=== PATIENT | female | born 1960 | race Caucasian/White ===

== ENCOUNTER 2016-07-16 07:04 | Emergency (ER) | payer OTHER ==
[2016-07-16] MEDS ORDERED: Aspirin Low Dose CHEW TAB* 81 MG PO ONE (07:19)
[2016-07-16 07:38] VITALS: BP 146/79
--- NOTE | 2016-08-17 08:17 | UC ---
Too Elliott Benjamin, scribed for Akanksha Joseph DO on 07/16/16 at 0729 . Cardiac HPI - HPI Summary HPI Summary: 55yo female comes to after waking up this morning around 0530 with sharp diffuse CP in 8/10 scale. Pt also reported having some SOB. 30 minutes later, pt started to feel nauseous as well. Pain radiates to shoulders and jaw. Sharp pain now turned into chest pressure and tightness of 1/10. Pt reports exercising lightly last night, but that is usual for her. Pt denies abdominal pain, diaphoresis, cough, MCGRATH, rash, or dizziness. Hx of depression, anxiety, and Crohns dz. Fhx of CAD after 53, HTN, and Crohns. - History of Current Complaint Stated Complaint: CHEST PAIN Time Seen by Provider: 07/16/16 07:05 Hx Obtained From: Patient Onset/Duration: Sudden Onset, Lasting Minutes, Still Present Timing: Constant Initial Severity: Moderate Current Severity: Mild Chest Pain Location: Diffuse Character: Tightness - now, Pressure/Squeezing - now, Sharp/Stabbing - initially Aggravating: Nothing Alleviating: Nothing Associated Signs & Symptoms: Positive: Chest Pain, Anxiety, SOB, Nausea/ Vomiting - Nausea. Negative: Headaches, Dizziness, Diaphoresis, Cough - Allergy/Home Medications Allergies/Adverse Reactions: Allergies Allergy/AdvReac Type Severity Reaction Status Date / Time kiwi Allergy Anaphylatic Uncoded 07/16/16 07:23 Shock Home Medications: Home Medications Cholecalciferol [Vitamin D3] 1 tab PO DAILY 07/16/16 [History Confirmed 07/16/16 ] DULoxetine CAP* [Cymbalta CAP*] 60 mg PO BID 07/16/16 [History Confirmed 09/24] Mercaptopurine 50 mg PO DAILY 07/16/16 [History Confirmed 07/16/16] Multiple Vitamin [Multivitamins] 1 cap PO DAILY 07/16/16 [History Confirmed 09/24] Kellogg-3 Fatty Acids [Fish Oil] 1 cap PO DAILY 07/16/16 [History Confirmed ] buPROPion TAB* [Wellbutrin TAB*] 300 mg PO DAILY 07/16/16 [History Confirmed 09/24] clonazePAM TAB(*) [Klonopin TAB(*)] PO BID 07/16/16 [History] lamoTRIgine TAB(*) [Lamictal TAB(*)] 300 mg PO DAILY 07/16/16 [History Confirmed 07/16/16] PMH/Surg Hx/FS Hx/Imm Hx GI/ History: Other - Crohns Other GI/ History: Crohns Psychological History: Anxiety, Depression - Surgical History Surgical History: Yes Surgery Procedure, Year, and Place: INTESTINAL RESECTION - Family History Known Family History: Positive: Cardiac Disease, Hypertension - Social History Lives: With Family Alcohol Use: Rare Smoking Status (MU): Former Smoker - over 30 yrs ago Review of Systems Constitutional: Negative Skin: Negative Eyes: Negative ENT: Negative Respiratory: Shortness Of Breath Cardiovascular: Chest Pain Gastrointestinal: Nausea Genitourinary: Negative Motor: Negative Neurovascular: Negative Musculoskeletal: Myalgia, Other: Neurological: Negative Psychological: Negative All Other Systems Reviewed And Are Negative: Yes Physical Exam Triage Information Reviewed: Yes Appearance: Well-Appearing, Well-Nourished, Pain Distress - mild, Other: - tearful; Vital Signs: Initial Vital Signs Temp 98.0 F 07/16/16 07:27 Pulse 89 07/16/16 07:27 Resp 16 07/16/16 07:27 BP 146/79 07/16/16 07:27 Pulse Ox 98 07/16/16 07:27 Vital Signs Reviewed: Yes Eyes: Positive: Conjunctiva Clear. Negative: Discharge ENT: Positive: Normal ENT inspection. Negative: Muffled/hoarse voice Neck exam: Normal Neck: Positive: Supple Respiratory: Positive: Lungs clear, Normal breath sounds, No respiratory distress, No accessory muscle use Cardiovascular: Positive: RRR, No Murmur Abdomen Description: Positive: Nontender, Soft. Negative: Distended, Guarding Bowel Sounds: Positive: Present Musculoskeletal Exam: Normal Neurological: Positive: Alert, Muscle Tone Normal Skin Exam: Normal, Other - warm dry, normal color - Assessment/Plan Course Of Treatment: EKG taken at 0711: Sinus rhythm HR of [address] changes. Triage BP: 146/79. - Clinical Impression Provider Diagnoses: cp r/o acs - Physician Notifications Discussed Patient Care With: Dr. Carter (Emergency Medicine) at 0711. Discharge - Discharge Plan Condition: Stable Disposition: [facility] Referrals: Barbara Wan MD [Primary Care Provider] - The documentation as recorded by the Too garrett Benjamin accurately reflects the service I personally performed and the decisions made by me, Akanksha Joseph DO.
== END 2016-07-16 08:00 | disposition short-term general hospital (02) ==
LOC: UCEAST 07:04
DX: R07.89 Other chest pain (principal); R06.02 Shortness of breath; R11.2 Nausea with vomiting, unspecified; F41.9 Anxiety disorder, unspecified; Z87.891 Personal history of nicotine dependence
CPT/HCPCS: 93005; 99213; G0463

== ENCOUNTER 2016-07-16 08:22 | Emergency (ER) | payer OTHER ==
[~2016-07-16 08:22] MED LIST: Aspirin Low Dose CHEW TAB* 81 MG ONE
[2016-07-16 08:58] LABS: Hematocrit 38 % (35-47); Hemoglobin 12.6 g/dl (12.0-16.0); Mean Corpuscular HGB Conc 33 g/dl (31-36); Mean Corpuscular Hemoglobin 30 pg (27-31); Mean Corpuscular Volume 89 fL (80-97); Mean Platelet Volume 7 um3 (7.4-10.4); Red Blood Count 4.26 10^6/ul (4.0-5.4); Red Cell Distribution Width 13 % (10.5-15)
--- NOTE | 2016-07-16 09:04 | ED ---
HPI Chest Pain - HPI Summary HPI Summary: Patient presents with chest tightness and back pain that began 05. She denies previous episodes, SOB, lightheadedness, sweating or abdominal pain. She is nauseous. Her pain is not made better or worse with activity. She did not eat a spicy or fatty meal last night. He father has CAD. She does not smoke. She has severe anxiety that is treated with therapy and medication, and she denies a recent increase in stress. 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 - History of Current Complaint Chief Complaint: EDChestPainROMI Time Seen by Provider: 07/16/16 08:38 Hx Obtained From: Patient Onset/Duration: Started Hours Ago Time of Onset: 05:30 Timing: Constant Initial Severity: Moderate Current Severity: Mild Pain Intensity: 2 Chest Pain Location: Upper Sternal Chest Pain Radiates: Yes Chest Pain Radiates To:: Back Character: Tightness Aggravating Factor(s): Nothing Alleviating Factor(s): Nothing Associated Signs and Symptoms: Positive: Chest Pain, Anxiety, Nausea - Risk Factors Pulmonary Embolism Risk Factors: Negative - Allergy/Home Medications Allergies/Adverse Reactions: Allergies Allergy/AdvReac Type Severity Reaction Status Date / Time kiwi Allergy Anaphylatic Uncoded 07/16/16 07:23 Shock PMH/Surg Hx/FS Hx/Imm Hx Psychiatric History: Reports: Hx Anxiety - Cancer History Hx Chemotherapy: No Hx Radiation Therapy: No - Surgical History Surgery Procedure, Year, and Place: INTESTINAL RESECTION. BREAST CYST BIOPSY. APPY Infectious Disease History: No Infectious Disease History: Reports: Hx Shingles Denies: Traveled Outside the [place] in Last 30 Days - Family History Known Family History: Positive: Cardiac Disease - father CAD - Social History Occupation: Employed Part-time Lives: Alone Alcohol Use: Occasionally Substance Use Type: Reports: None Smoking Status (MU): Former Smoker Review of Systems Negative: Fever, Chills Positive: Chest Pain Positive: Nausea. Negative: Abdominal Pain, Vomiting, Diarrhea Negative: Edema Negative: Headache Positive: Anxious All Other Systems Reviewed And Are Negative: Yes Physical Exam Triage Information Reviewed: Yes Vital Signs On Initial Exam: Initial Vitals Temp Pulse Resp BP Pulse Ox 98.2 F 79 16 128/82 97 07/16/16 08:26 07/16/16 08:26 07/16/16 08:26 07/16/16 08:26 07/16/16 08:26 Vital Signs Reviewed: Yes Appearance: Positive: Well-Appearing, No Pain Distress, Well-Nourished Skin: Positive: Warm, Skin Color Reflects Adequate Perfusion, Dry, Soft. Negative: Diaphoretic Head/Face: Positive: Normal Head/Face Inspection Eyes: Positive: EOMI, SERAFIN, Conjunctiva Clear ENT: Positive: Hearing grossly normal Neck: Positive: Supple, Nontender, No Lymphadenopathy Respiratory/Lung Sounds: Positive: Clear to Auscultation, Breath Sounds Present Cardiovascular: Positive: RRR, Pulses are Symmetrical in both Upper and Lower Extremities Abdomen Description: Positive: Nontender, Soft. Negative: CVA Tenderness (R), CVA Tenderness (L), Distended, Guarding Bowel Sounds: Positive: Present Musculoskeletal: Positive: Strength/ROM Intact. Negative: Edema Left, Edema Right Neurological: Positive: Sensory/Motor Intact, Alert, Oriented to Person Place, Time, NV Bundle Intact Distally Psychiatric: Positive: Anxious - patient is intermittently weeping during interview. She has therapist and takes daily medication for anxiety. AVPU Assessment: Alert - Manda Coma Scale Coma Scale Total: 15 Diagnostics - Vital Signs Vital Signs Temp Pulse Resp BP Pulse Ox 07/16/16 08:29 97.3 F 79 16 127/76 97 07/16/16 08:26 98.2 F 79 16 128/82 97 - Laboratory Result Diagrams: 07/16/16 07:30 07/16/16 07:30 Lab Statement: Any lab studies that have been ordered have been reviewed, and results considered in the medical decision making process. - Radiology No standard instances Xray Interpretation: No Acute Changes Radiology Interpretation Completed By: Radiologist - EKG No standard instances Cardiac Rate: NL EKG Rhythm: Sinus Rhythm ST Segment: Normal Ectopy: None Chest Pain Course/Dx - Chest Pain Differential Diagnosis/HQI/PQRI: Acute RI, ACS, Angina, CHF, Chest Wall - Diagnoses Provider Diagnoses: Chest tightness - Provider Notifications Discussed Care Of Patient With: Dr. Shoemaker, ED attending Time Discussed With Above Provider: 09:50 Discharge - Discharge Plan Condition: Stable Disposition: HOME Patient Education Materials: Chest Wall Pain (ED) Referrals: Barbara Wan MD [Primary Care Provider] - Additional Instructions: Please call your PCP for an appointment in 1-3 days for evaluation. Return to the emergency department if symptoms worsen.
[2016-07-16 09:09] LABS: Albumin 4.1 g/dL (3.2-5.2); Calcium 9.3 mg/dL (8.6-10.3); EGFR African American 69.5 (>60); Globulin 2.8 g/dL (2-4); Potassium 3.8 mmol/L (3.5-5.0); Total Bilirubin 0.3 mg/dL (0.2-1.0); Total Protein 6.9 g/dL (6.4-8.9)
--- NOTE | 2016-07-16 09:09 | RAD ---
Indication: Chest tightness since 5:30 AM. Comparison: No relevant prior exams available on the [facility] for comparison. Technique: Upright AP 0852 hours Report: Clear lungs and pleural spaces. Negative for pneumothorax. The heart, pulmonary vasculature, and mediastinal contours are unremarkable. Probable calcific tendinopathy at the LEFT rotator cuff. IMPRESSION: No evidence for acute intrathoracic disease.
[2016-07-16 12:29] VITALS: BP 130/85
== END 2016-07-16 12:29 | disposition home or self-care (01) ==
LOC: ED 08:22
DX: R07.9 Chest pain, unspecified (principal); R11.0 Nausea; Z87.891 Personal history of nicotine dependence; M54.9 Dorsalgia, unspecified; F41.9 Anxiety disorder, unspecified
CPT/HCPCS: 36415; 71010; 80053; 83605; 83735; 84484; 85025; 85379; 93005; 99283; A9270-GY

== ENCOUNTER 2017-10-29 16:54 | Emergency (ER) | payer OTHER ==
[2017-10-29 17:05] VITALS: BP 129/77
--- NOTE | 2017-10-29 17:20 | UC ---
Cardiac HPI - HPI Summary HPI Summary: This patient is a 56 year old F presenting to [facility] with a chief complaint of CP since earlier today. The patient was sitting at her computer at work during onset. The CC is described as intermittent tight, radiating to her L jaw, and lasting about 15 minutes. The initial pain resolved then came back again but not as bad as the first time. The patient rates the pain 2/10 in severity. Symptoms aggravated by nothing. Symptoms alleviated by spontaneous. Patient reports nausea. Patient denies diaphoresis, SOB, and near syncope. She has had a previous episode of CP and was seen on 07/16/16. FHx of quadruple bypass in father (age in mid 70s). - History of Current Complaint Chief Complaint: UCChestPain Stated Complaint: CHEST PAIN Time Seen by Provider: 10/29/17 16:56 Hx Obtained From: Patient Onset/Duration: Sudden Onset Initial Severity: Mild Current Severity: Mild Pain Intensity: 2 Character: Tightness Aggravating Factor(s): Nothing Alleviating Factor(s): Spontaneous Resolution Associated Signs & Symptoms: Positive: Chest Pain - Patient reports nausea. Patient denies diaphoresis, SOB, and near syncope. - Allergy/Home Medications Allergies/Adverse Reactions: Allergies Allergy/AdvReac Type Severity Reaction Status Date / Time kiwi Allergy Anaphylatic Uncoded 04/19/17 16:20 Shock PMH/Surg Hx/FS Hx/Imm Hx Endocrine History: Other Other Endocrine History: No DM Cardiovascular History: Other Other Cardiovascular History: previous episode of CP; no CAD, HTN - Surgical History Surgical History: Yes Surgery Procedure, Year, and Place: INTESTINAL RESECTION. BREAST CYST BIOPSY. APPENDECTOMY - Family History Known Family History: Positive: Cardiac Disease - father CAD (quadruple bypass) - Social History Alcohol Use: Rare Substance Use Type: None Smoking Status (MU): Former Smoker Have You Smoked in the Last Year: No When Did the Patient Quit Smoking/Using Tobacco: 18 YEARS OLD Review of Systems Constitutional: Other - denies diaphoresis Respiratory: Other - denies SOB Cardiovascular: Chest Pain - radiating to her L jaw Neurological: Other - denies near-syncope All Other Systems Reviewed And Are Negative: Yes Physical Exam - Summary Physical Exam Summary: VITAL SIGNS: Reviewed. GENERAL: Patient is a well-developed and nourished FEMALE who is lying comfortable in the stretcher. Patient is not in any acute respiratory distress. HEAD AND FACE: Normocephalic EYES: PERRLA, EOMI x 2. EARS: Hearing grossly intact. MOUTH: Oropharynx within normal limits. NECK: Supple, trachea is midline, no adenopathy, no JVD, no carotid bruit. CHEST: Symmetric, no tenderness at palpation LUNGS: Clear to auscultation bilaterally. No wheezing or crackles. CVS: Regular rate and rhythm, S1 and S2 present, no murmurs or gallops appreciated. ABDOMEN: Soft, non-tender. Bowel sounds are normal. No abdominal abnormal pulsations. EXTREMITIES: Full ROM in all major joints, no edema, no cyanosis or clubbing. NEURO: Alert and oriented x 3. No acute neurological deficits. Speech is normal and follows commands. SKIN: Dry and warm Triage Information Reviewed: Yes Vital Signs: Initial Vital Signs Temp 97.5 F 10/29/17 17:01 Pulse 82 10/29/17 17:01 Resp 20 10/29/17 17:01 BP 129/77 10/29/17 17:01 Pulse Ox 97 10/29/17 17:01 Vital Signs Reviewed: Yes Diagnostics - EKG EKG Comments: done at 1654, no ST elevations, inverted T wave in III Cardiac Rate: NL - 76 BPM Cardiac Rhythm: Sinus: Normal - Assessment/Plan Course Of Treatment: This patient is a 48-year-old female who presents to the urgent care with chief complaint of retrosternal chest pressure with radiation to the left side of the jaw. Patient's pain lasted for approximately 15 minutes each time. The pain is not related to exertion. EKG shows a normal sinus rhythm with no ST elevations. Because of the presentation I think the patient would benefit of blood testings and rule out acute coronary syndrome. The patient will be discharged to the emergency department for further workup and management. The patient declined aspirin and declined ambulance transfer. Patient is hemodynamically stable alert and oriented 3 - Differential Diagnoses - Chest Pain Differential Diagnosis/HQI/PQRI: Angina, Chest Wall, GI Disease, Lower Respiratory Infection - Clinical Impression Provider Diagnoses: chest pain Discharge - Sign-Out/Discharge Documenting (check all that apply): Patient Departure - discharged All imaging exams completed and their final reports reviewed: Yes - Discharge Plan Condition: Stable Disposition: HOME Patient Education Materials: Chest Pain (ED) Referrals: Barbara Wan MD [Primary Care Provider] - Additional Instructions: She was discharged to the emergency department. Patient declined ambulance transfer. - Billing Disposition and Condition Condition: STABLE Disposition: Home - Attestation Statements Document Initiated by Tee: Yes Documenting Scribe: Connor Hernandez Provider For Whom Tee is Documenting (Include Credential): Mason Shoemaker MD Scribe Attestation: Connor Elliott, scribed for Mason Shoemaker MD on 10/29/17 at 1726. Scribe Documentation Reviewed: Yes Provider Attestation: The documentation as recorded by the Connor garrett accurately reflects the service I personally performed and the decisions made by me, Mason Shoemaker MD
--- OUTSIDE RECORDS SUMMARY | 2017-10-29 17:25 | XMS REPORT ---
:1960 External Reference #:[id number] Author Organization [facility] Address [address] [place] [address] [place] [address] Phone [phone] Care Team Providers Name Role Phone Barbara Wan MD Primary Care Physician Unavailable Payers Type Date Identification Numbers Payment Provider Subscriber Commercial Effective: Policy Number: [id number] [employer] Elena Myers 2011 PayID: [id number] [address] [place] [address] Medigap Part B Expires: 2011 Policy Number: Healthdilma Myers [id number] Group Number: [id number] [address] PayID: [id number] [place] [address] Advance Directives Type Date Description Status Comment Other Directive 03/11/2015 Health Care Proxy Current and Verified Problems Date Description Provider Status Onset: 06/04/2010 Crohn's disease Rula Moreno M.D., FACP Active Family History Date Family Member(s) Problem(s) Comments Father CABG hip replacement, no Fx Father Atrial Fibrillation Mother Back surgery herniated disc Mother 87 Mother Atrial Fibrillation First Sister Fibromyalgia First Sister 61 First Sister Crohn's Disease Social History Type Date Description Comments Marital Status Single Lives With Alone 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 [employer] ETOH Use Drinks 1 Alcoholic Beverage or less Per Week Smoking Patient is a former smoker 2 years up to 1ppd, quit about age 18 Exercise Type/Frequency Exercises regularly dragon boat racing in the summer General Hx Text HCP: Yolis Deven Allergies, Adverse Reactions, Alerts Date Description Reaction Status Severity Comments 11/26/2009 Kiwi Anaphylaxis active Severe 09/18/2013 Macrodantin Nausea and Vomiting active Moderate 05/13/2011 NKDA inactive Medications Medication Date Status Form Strength Qnty SIG Indications Ordering Provider Mercaptopurine Active Tablets 50mg 30tab 1 Tablet Unknown /0000 s Daily Bupropion HCL Active Tablets 300mg 90tab 1 by mouth Unknown /0000 s every day Multi-Vitamin Active Tablets 1 po qd Unknown /0000 Fish Oil Active Capsules 500mg 1 po qday Unknown /0000 Lamictal Active Tablets 300mg 1 po qd Unknown / Vitamin D3 Active Tablets 2000Unit 1 by mouth Unknown Super Strength /0000 every day Cymbalta Active Caps DR 60mg 1 bid Lucila, / Part Gia Castaneda, TAWANA PHD Ritalin Active Tablets 10mg 1 by mouth Unknown /0000 qd Gabapentin 08/24 Hx Capsules 100mg 45cap take 1-2 M25.552 s capsules at Cotton, - bedtime prn M.D. 01/17 Gabapentin 08/21 Hx Capsules 300mg 30cap 1 by mouth M25.552 s at bedtime Cotton, - M.D. 08/24 Clotrimazole 02/12 Hx Lozenges 10mg 70uni 1 by mouth B37.0 ts 5 times a Cotton, - day for 2 M.D. 08/21 weeks allow to dissolve slowly Cymbalta 02/[address] 30mg 2 po qam, Part and 2 po Tiffanie, - at noon M.D., FACP 02/12 Macrobid 08/03 Hx Capsules 100mg 14cap 1 tab by 788.42 s mouth twice Cotton, - a day x 7 M.D. Cymbalta 04/[address] 60mg 1 po qam, Part and 1 po Tiffanie, - at noon M.D., FACP 02/05 Nasonex 08/24 Hx Suspension 50mcg/Act 1unit 2 sprays to 477.9 s each Tiffnaie, - nostril M.DChris, [facility] 01/19 once daily Cephalexin 07/20 Hx Capsules 250mg 20cap take 1 four 682.3 s times a day Max Moreno M.D., [facility] 07/25 Zithromax Z-Ray 12/10 Hx Tablets 250mg 1Pack two po Rula initially Tiffanie, - then one po M.D., [facility] 12/20 daily Flonase 12/10 Hx Suspension 50mcg/Act 1unit 1 s intranasal Tiffanie, - puff to M.Cornell, [facility] 12/20 nostril daily Clotrimazole/Be 11/28 Hx Cream 1-0.05% 15gm apply twice Rula tamethasone daily as Tiffanie Dipropionate - needed M.Cornell, [facility] 10/27 Massage Therapy 11/28 Hx Neck, Back Pain Max Moreno M.D., [facility] 12/10 Epipen 11/26 Hx Device 0.3mg/0.3 2unit use one ML s time as Tiffanie - directed Heavenly, [facility] 01/[address] 30mg 21cap 1 Tablets Unknown /0000 Part s Am One AT - Noon 04/11 Wellbutrin XL Hx Tablets ER 150mg 30tab 1 tablet Unknown /0000 24HR s daily with - 300mg 06/04 Gabapentin Hx Capsules 300mg 90cap 1 tablet am Unknown /0000 s 2 at night - 06/04 Abilify Hx Tablets 2mg 30tab 1/2 po Unknown /0000 s qpm - 05/12 Citracal Hx Tablets 315-250mg 2 tablet Unknown Maximum /0000 -Unit daily - 01/19 Curcumin 00 Hx Powder 1000mg 1 cap daily Unknown /0000 - 05/30 Clonazepam Hx Tablets 0.5mg (Not Unknown /0000 Taking)1/4 - by mouth 10/04 daily q Immunizations CPT Code Status Date Vaccine Reaction Lot # [id number] Given 10/05/2017 Pneumonia Vaccine [id number] Given 10/01/2016 Pneumococcal Conjugate [id number] Vaccine 13 Valent For Intramuscular Use 90590 Given 09/30/2015 Tdap - [id number] Tetanus/Diptheria/Acellular Pertussis 04370 Given 07/17/2011 Zoster (Zostavax) localized reddness 0254AE present- area warm to touch. 50640 Given 11/23/2006 Influenza Virus 3Yrs & Over 15922 Given 08/14/2005 Tetanus And Diptheria (Td) For Adult Use Preservative Free 63404 Given 08/14/2005 Hepatitis A Vaccine Adult Dosage 26917 Given 08/14/2005 Hepatitis A Vaccine Adult Dosage Vital Signs Date Vital Result Comment 10/05/2017 Height 66 inches 5'6" Weight 182.00 lb Heart Rate 86 /min BP Systolic Sitting 127 mmHg BP Diastolic Sitting 72 mmHg O2 % BldC Oximetry 98 % BMI (Body Mass Index) 29.4 kg/m2 01/18/2017 Height 66 inches 5'6" Heart Rate 106 /min BP Systolic 118 mmHg BP Diastolic 68 mmHg O2 % BldC Oximetry 98 % 10/01/2016 Height 66 inches 5'6" Weight 173.50 lb Heart Rate 79 /min BP Systolic 130 mmHg BP Diastolic 80 mmHg Body Temperature 97.5 F O2 % BldC Oximetry 98 % BMI (Body Mass Index) 28.0 kg/m2 Waist Circumference 38 08/21/2016 Weight 172.75 lb Heart Rate 107 /min BP Systolic 128 mmHg BP Diastolic 76 mmHg O2 % BldC Oximetry 97 % 02/13/2016 Heart Rate 95 /min BP Systolic Sitting 124 mmHg BP Diastolic Sitting 84 mmHg Body Temperature 97.1 F O2 % BldC Oximetry 98 % 09/30/2015 Height 66 inches 5'6" Weight 168.00 lb Heart Rate 66 /min BP Systolic Sitting 122 mmHg BP Diastolic Sitting 76 mmHg Respiratory Rate 15 /min Body Temperature 98.4 F O2 % BldC Oximetry 98 % BMI (Body Mass Index) 27.1 kg/m2 05/31/2015 Weight 166.75 lb Heart Rate 93 /min BP Systolic Sitting 109 mmHg BP Diastolic Sitting 76 mmHg Body Temperature 97.4 F Pain Level 0 O2 % BldC Oximetry 97 % 09/24/2014 Height 66.5 inches 5'6.50" Weight 159.25 lb Heart Rate 84 /min BP Systolic Sitting 110 mmHg BP Diastolic Sitting 68 mmHg Body Temperature 98.2 F O2 % BldC Oximetry 98 % BMI (Body Mass Index) 25.3 kg/m2 02/05/2014 Height 66.25 inches 5'6.25" Weight 155.00 lb Heart Rate 86 /min BP Systolic Sitting 98 mmHg BP Diastolic Sitting 68 mmHg Body Temperature 98.3 F BMI (Body Mass Index) 24.8 kg/m2 09/18/2013 Height 66.25 inches 5'6.25" Weight 155.50 lb Heart Rate 80 /min BP Systolic Sitting 100 mmHg BP Diastolic Sitting 64 mmHg Body Temperature 97.9 F BMI (Body Mass Index) 24.9 kg/m2 08/03/2013 Height 66.25 inches 5'6.25" Weight 156.00 lb Heart Rate 68 /min BP Systolic Sitting 102 mmHg BP Diastolic Sitting 78 mmHg Body Temperature 97.1 F BMI (Body Mass Index) 25.0 kg/m2 05/30/2013 Weight 158.00 lb Heart Rate 98 /min BP Systolic Sitting 118 mmHg BP Diastolic Sitting 74 mmHg 04/11/2013 Weight 160.00 lb ith boots Heart Rate 88 /min BP Systolic 116 mmHg BP Diastolic 70 mmHg Respiratory Rate 16 /min Body Temperature 97.7 F 01/19/2013 Weight 155.75 lb Heart Rate 72 /min BP Systolic 132 mmHg BP Diastolic 62 mmHg 10/19/2012 Weight 151.00 lb Heart Rate 78 /min BP Systolic Sitting 118 mmHg BP Diastolic Sitting 64 mmHg 08/24/2012 Height 66.25 inches 5'6.25" Weight 153.00 lb Heart Rate 80 /min BP Systolic Sitting 120 mmHg BP Diastolic Sitting 62 mmHg BMI (Body Mass Index) 24.5 kg/m2 01/22/2012 Height 66.25 inches 5'6.25" Weight 158.00 lb Heart Rate 78 /min BP Systolic Sitting 118 mmHg BP Diastolic Sitting 72 mmHg BMI (Body Mass Index) 25.3 kg/m2 01/07/2012 Height 66.25 inches 5'6.25" Weight 157.00 lb Heart Rate 80 /min BP Systolic Sitting 104 mmHg BP Diastolic Sitting 70 mmHg BMI (Body Mass Index) 25.1 kg/m2 10/28/2011 Height 66 inches 5'6" Weight 156.00 lb Heart Rate 76 /min BP Systolic Sitting 120 mmHg BP Diastolic Sitting 66 mmHg BMI (Body Mass Index) 25.2 kg/m2 07/21/2011 Height 66 inches 5'6" Heart Rate 76 /min BP Systolic Sitting 100 mmHg BP Diastolic Sitting 62 mmHg Body Temperature 98.6 F 07/17/2011 Height 66 inches 5'6" Weight 154.00 lb Heart Rate 74 /min BP Systolic Sitting 124 mmHg BP Diastolic Sitting 76 mmHg BMI (Body Mass Index) 24.9 kg/m2 05/13/2011 Height 66 inches 5'6" Weight 153.25 lb Heart Rate 76 /min BP Systolic Sitting 110 mmHg BP Diastolic Sitting 70 mmHg BMI (Body Mass Index) 24.7 kg/m2 06/04/2010 Height 66 inches 5'6" Weight 152.50 lb Heart Rate 80 /min 108 BP Systolic 108 mmHg BP Diastolic 74 mmHg BMI (Body Mass Index) 24.6 kg/m2 12/20/2009 Heart Rate 76 /min BP Systolic 110 mmHg BP Diastolic 80 mmHg Body Temperature 98.3 F 12/10/2009 Weight 146.00 lb Heart Rate 100 /min BP Systolic 104 mmHg BP Diastolic 80 mmHg Body Temperature 98.4 F 11/28/2009 Weight 147.00 lb Heart Rate 80 /min BP Systolic 102 mmHg BP Diastolic 64 mmHg Results Test Date Test Result H/L Range Note Laboratory test finding 07/16/2016 Troponin-I (TnI) 0.00 ng/mL <0.04 Laboratory test finding 02/13/2016 Culture Throat SEE RESULT BELOW 1 Laboratory test finding 09/30/2015 Cytology SEE RESULT BELOW 2 HPV Rna Ww/Reflex Genotype Negative Negative 3 Laboratory test finding 09/23/2015 Glucose 95 mg/dL 70-100 Lipid Profile (Trig/Chol/HDL) 09/23/2015 Triglycerides 211 mg/dL 4 Cholesterol 256 mg/dL 5 HDL Cholesterol 50.6 mg/dL 6 LDL Cholesterol 163 mg/dL 7 Laboratory test 12/07/2014 Hepatitis C Antibody Nonreactive Nonreactive finding Lipid Profile 09/13/2013 Triglycerides 112 mg/dL 8, 9 (Trig/Chol/HDL) Cholesterol 230 mg/dL 8, 10 HDL Cholesterol 50.3 mg/dL 8, 11 LDL Cholesterol 157 mg/dL 8, 12 Laboratory test finding 09/13/2013 Glucose 90 mg/dL 70-100 8, 13 Urine Culture And 08/03/2013 Urine Culture (SEE NOTE) 14 Sensitivities Ua Routine 08/03/2013 Ua Specific [place] 1.005 Ua PH 5 Ua Color yellow Ua Appera clear Ua WBC negative Ua Protein negative Ua Glucose negative Ua Ketones negative Ua Bilirubin negative Ua Urobilinogen normal Ua Nitrite negative Ua Occult Blood NHT CBC No Diff 01/11/2013 White Blood Count 5.1 10^3/uL 4.8-10.8 Red Blood Count 4.08 10^6/uL 4.0-5.4 Hemoglobin 12.6 g/dL 12.0-16.0 Hematocrit 37 % 35-47 Mean Corpuscular Volume 90 fL 80-97 Mean Corpuscular Hemoglobin 31 pg 27-31 Mean Corpuscular HGB Conc 34 g/dL 31-36 Red Cell Distribution Width 13 % 10.5-15 Platelet Count 322 10^3/uL 150-450 Mean Platelet Volume 8 um3 7.4-10.4 Liver Function Panel 01/11/2013 Total Protein 6.1 g/dL Low 6.2-8.1 Albumin 3.9 g/dL 3.6-5.4 Globulin 2.2 g/dL 2-4 Albumin/Globulin Ratio 1.8 1-3 Total Bilirubin 0.7 mg/dL 0.4-1.5 Direct Bilirubin < 0.1 mg/dL Low 0.1-0.5 Indirect Bilirubin (SEE NOTE) mg/dL 0.3-1.0 15 Alkaline Phosphatase 68 U/L 30-110 Alt 20 U/L 14-54 Ast 18 U/L 12-42 Laboratory test 01/11/2013 TSH (Thyroid Stimulating 1.66 miu/mL 0.34- 5.60 16 finding Horm) Lipid Profile 01/11/2013 Triglycerides 123 mg/dL 40-200 (Trig/Chol/HDL) Cholesterol 262 mg/dL High Less than 200 HDL Cholesterol 62 mg/dL High 40-60 17 Cholesterol/HDL Ratio 4.2 Average 1-4.44 LDL Cholesterol 175.4 High Less Than 100 18 Laboratory test finding 08/24/2012 Cytology RUN DATE: 08/26/ <SEE 19 NOTE> Liver Function Panel 08/16/2012 Total Protein 6.6 g/dL 6.2-8.1 Albumin 3.8 g/dL 3.6-5.4 Globulin 2.8 g/dL 2-4 Albumin/Globulin Ratio 1.4 1-3 Total Bilirubin 0.7 mg/dL 0.4-1.5 Direct Bilirubin 0.1 mg/dL 0.1-0.5 Indirect Bilirubin 0.6 mg/dL 0.3-1.0 Alkaline Phosphatase 55 U/L 30-110 Alt 20 U/L 14-54 Ast 24 U/L 12-42 CBC Auto Diff 08/16/2012 White Blood Count 4.4 10^3/uL Low 4.8-10.8 Red Blood Count 3.85 10^6/uL Low 4.0-5.4 Hemoglobin 11.6 g/dL Low 12.0-16.0 Hematocrit 36 % 35-47 Mean Corpuscular Volume 92 fL 80-97 Mean Corpuscular Hemoglobin 30 pg 27-31 Mean Corpuscular HGB Conc 33 g/dL 31-36 Red Cell Distribution Width 13 % 10.5-15 Platelet Count 348 10^3/uL 150-450 Mean Platelet Volume 8 um3 7.4-10.4 Abs Neutrophils 2.4 10^3/uL 1.5-7.7 Abs Lymphocytes 1.4 10^3/uL 1.0-4.8 Abs Monocytes 0.5 10^3/uL 0-0.8 Abs Eosinophils 0.1 10^3/uL 0-0.6 Abs Basophils 0 10^3/uL 0-0.2 Abs Nucleated RBC 0 10^3/uL Granulocyte % 54.6 % 38-83 Lymphocyte % 31.8 % 25-47 Monocyte % 10.8 % High 1-9 Eosinophil % 1.9 % 0-6 Basophil % 0.9 % 0-2 Nucleated Red Blood Cells % 0.1 Laboratory test finding 08/16/2012 Glucose 81 mg/dL 70-100 20 Lipid Profile (Trig/Chol/HDL) 08/16/2012 Triglycerides 99 mg/dL 40-200 Cholesterol 265 mg/dL High Less than 200 HDL Cholesterol 55 mg/dL 40-60 21 Cholesterol/HDL Ratio 4.8 Average High 1-4.44 LDL Cholesterol 190.2 High Less Than 100 22 Ua Routine 01/07/2012 Ua Specific [place] 1.015 Ua PH 5 Ua Color yellow Ua Appera slightly cloudy Ua WBC trace Ua Protein trace Ua Glucose neg Ua Ketones neg Ua Bilirubin neg Ua Urobilinogen neg Ua Nitrite neg Ua Occult Blood small +25 Laboratory test finding 12/07/2011 Prolactin 9.60 NG/ML 1.0-25.0 CBC Auto Diff 10/28/2011 White Blood Count 5.3 CUMM 4.8-10.8 Red Cell Count 4.09 CUMM Low 4.2-5.4 Hemoglobin 12.7 g/dL 12.0-16.0 Hematocrit 38 % 35-47 Mean Corpuscular Volume 92 um3 79-97 Mean Corpuscular Hemoglob 31 pg 27-31 Mean Corpuscular HGB Cone 34 g/dL 32-36 Redcell Distribution WDTH 13 % 10.5-15 Platelet Count 289 CUMM 150-450 Mean Platelet Volume 8.1 um3 7.4-10.4 Gran % 57.5 % 38-83 Lymph % 32.4 % 20-45 Mononuclear % 7.0 % 1-9 Eosinophil % 2.4 % 0-6 Basophil % 0.7 % 0-2 Abs Lymphs 1.7 1.0-4.8 Abs Mononuclear 0.4 0-0.8 Absolute Neutrophil Count 3.1 1.5-7.7 Abs Eosinophils 0.1 0-0.6 Abs Basophils 0 0-0.2 Laboratory test finding 10/28/2011 TSH 1.61 MIU/ML 0.34-5.60 Lipid Profile (Trig/Chol/HDL) 05/11/2011 Triglyceride 114 mg/dL 40-200 Cholesterol 239 mg/dL High Less Than 200 23 High Density Lipoprotein 56 mg/dL 40-60 24 Cholesterol/HDL Ratio 4.27 AVERAGE 1-4.44 Low Density Lipoprotein 160 mg/dL High Less Than 100 25 Laboratory test finding 05/11/2011 Glucose 92 mg/dL 70-100 1 SEE RESULT BELOW Name: ELENA MYERS : [address]: Barbara Wan MD Acct: [id number] Unit: [id number] AGE: 55 Location: [facility] Re02/13/16 SEX: F Status: REG REF SPEC: [id number] DANN: 02/13/[address] [facility] [address]: Barbara Wan MD REQ: [id number] RECD: 02/13/16 STATUS: COMP _ SOURCE: THROAT SPDESC: ORDERED: Throat Culture COMMENTS: LOOK FOR THRUSH. SOURCE IS TONGUE. [id number] Procedure Result Reported Site Throat Culture Final 02/15/16- 1010 ML Organism 1 NORMAL ALIN Quantity 2+ Throat cultures are clinically indicated to detect the presence of group A strep, arcanobacterium and yeast. In certain cases, predominating organisms will be reported. * ML - MAIN LAB ([facility]) . END OF REPORT * ML=Testing performed at Main Lab DEPARTMENT OF PATHOLOGY, [address] [place] [address] Adriel Simpson M.D. Director JIMI # [id number] 2 SEE RESULT BELOW Name: ELENA MYERS : [address]: Barbara Wan MD Acct: [id number] Unit: [id number] AGE: 54 Location: [facility] Re09/30/15 SEX: F Status: REG REF SPEC: [id number] DANN: 09/30/15-[address] [facility] [address]: Barbara Wan MD REQ: [id number] RECD: 09/30/157570 STATUS: SOUT _ ORDERED: IMAGE ANALYSIS, HPV/Thin Prep, HPV 16/18 GENE COMMENTS: [id number] FINAL DIAGNOSIS Negative for Intraepithelial lesion or Malignancy A. Ectocervical/Endocervical Specimen Adequacy: Satisfactory of evaluation Transformation zone component identified Patient Information: HPV: High risk HPV RNA testing regardless of pap results. HPV 16/18 Genotype Reflex Actual Specimen Date: 09/30/15 LMP If Unknown: age 49 Spec Date if unknown: 2012 ?: N Post Menopausal?: Y Hysterectomy?: N Date Time Test Result Flag (u) Normal Range 09/30/15 1427 HPV RNA RFLX GE Negative Negative The high-risk HPV types detected by the assay include: 16, 18, 31, 33, 35, 39, 45, 51, 52, 56, 58, 59, 66, and 68. Signed (signature on file) CASSANDRA Hopson(ASC) 09/30 1324 This Pap test was evaluated with the assistance of the GroupChargerPrep Test Imaging System. Due to cytologic findings at the battery assembler microscope, comprehensive manual rescreening by a Shared Services Representative may be required. The Pap Smear is a screening test designed to aid in the detection of premalignant and malignant conditions of the uterine cervix. It is not a diagnostic procedure and should not be used as the sole means of detecting cervical cancer. Both false- positive and false- negative reports do occur. Depending on your risk status, a Pap smear should be obtained and evaluated every 1-3 years. END OF REPORT * ML=Testing performed at Main Lab DEPARTMENT OF PATHOLOGY, [address] [place] [address] Adriel Simpson M.D. Director [facility] # [id number] RUN DATE: 10/01/15 [facility] LAB LIVE PAGE 1 Patient: ELENA MYERS [id number] (Continued) 3 The high-risk HPV types detected by the assay include: 16, 18, 31, 33, 35, 39, 45, 51, 52, 56, 58, 59, 66, and 68. 4 Desirable <150 Borderline high 150-199 High 200-499 Very High >500 5 Desirable <200 Borderline high 200-239 High >239 6 Low <40 Desirable: 40-60 High: >60 7 Desirable: <100 mg/dL Near Optimal: 100-129 mg/dL Borderline High: 130-159 mg/dL High: 160-189 mg/dL Very High: >189 mg/dL 8 FASTING 12 HOUR 9 Desirable <150 Borderline high 150-199 High 200-499 Very High >500 10 Desirable <200 Borderline high 200-239 High >239 11 Low <40 Desirable: 40-60 High: >60 12 Desirable <100 Near Optimal 100-129 Borderline high 130-159 High 160-189 Very High >189 13 FASTING 12 HOUR 14 RUN DATE: 08/06/13 [facility] LAB LIVE PAGE 1 RUN TIME: [address] [place], [place] [address] Specimen Inquiry Name: ELENA MYERS : [address]: Barbara Wan MD Acct: [id number] Unit: [id number] AGE: 52 Location: [facility] Re08/03/13 SEX: F Status: REG REF SPEC: [id number] DANN: 08/03/[address]: Barbara Wan MD REQ: [id number] RECD: 08/04/13 STATUS: COMP _ SOURCE: URINE SPDESC: ORDERED: Urine Culture QUERIES: Medent Number [id number] Procedure Result Verified Site Urine Culture Final 08/06/13- 1006 ML No Growth Day 2 (<1,000 CFU/mL) END OF REPORT * ML=Testing performed at Main Lab DEPARTMENT OF PATHOLOGY, [facility] [place] [employer] [place] [address] Adriel Simpson M.D. Director [facility] # [id number] 15 Unable to calculate Ind Bili as D Bili is <0.1 Unable to calculate Ind Bili as D Bili is <0.1 16 FASTING 12 HOUR do in 3-4 months 17 HDL Interpretation: Undesirable: High Risk: Less than 40 mg/dL Desirable: Low Risk: Greater than 60 mg/dL 18 LDL Interpretation: Low Risk Optimal Level: LDL Less than 100 mg/dL Near or Above Optimal: LDL 100-129 mg/dL Borderline High Risk: LDL 130-159 mg/dL High Risk: LDL 160-189 mg/dL Very High Risk: LDL Greater than 189 mg/dL 19 RUN DATE: 08/26/12 [facility] LAB LIVE PAGE 1 RUN TIME: [address] [place] [address] Specimen Inquiry Name: ELENA MYERS : [address]: Rula Moreno MD Acct: [id number] Unit: [id number] AGE: 51 Location: [facility] Re08/24/12 SEX: F Status: REG REF SPEC: [id number] DANN: 08/24/12-[address] [facility] [address]: Rula Moreno MD REQ: [id number] RECD: 08/24/12 STATUS: SOUT _ ORDERED: THIN PREP FINAL DIAGNOSIS Negative for Intraepithelial lesion or Malignancy A. Ectocervical/Endocervical Specimen Adequacy: Satisfactory of evaluation Transformation zone component identified Patient Information: HPV: Thin Layer Pap Test w/reflex to high risk HPV DNA testing when ASCUS Actual Specimen Date: 08/24/12 LMP If Unknown: at age 50 Cautery: N IUD: N Lesion, grossly demonstrate: N ?: N Post Menopausal?: N Hysterectomy?: N Previous Abnormal Pap Smears?:N Signed CASSANDRA Sellers (ASCP) 08/26 0802 This Pap test was evaluated with the assistance of the ThinPrep Test Imaging System. Due to cytologic findings at the battery assembler microscope, comprehensive manual rescreening by a Shared Services Representative may be required. The Pap Smear is a screening test designed to aid in the detection of premalignant and malignant conditions of the uterine cervix. It is not a diagnostic procedure and should not be used as the sole means of detecting cervical cancer. Both false- positive and false- negative reports do occur. Depending on your risk status, a Pap smear shoudl be obtained and evaluated every 1-3 years. END OF REPORT * ML=Testing performed at Main Lab DEPARTMENT OF PATHOLOGY, [address] [place] [address] Adriel Simpson M.D. Director [facility] Permit #[id number] 20 FASTING 21 HDL Interpretation: Undesirable: High Risk: Less than 40 mg/dL Desirable: Low Risk: Greater than 60 mg/dL 22 LDL Interpretation: Low Risk Optimal Level: LDL Less than 100 mg/dL Near or Above Optimal: LDL 100-129 mg/dL Borderline High Risk: LDL 130-159 mg/dL High Risk: LDL 160-189 mg/dL Very High Risk: LDL Greater than 189 mg/dL 23 CHOLESTEROL INTERPRETATION: Desirable: Less than 200 MG/DL Borderline-High Risk: 200-239 MG/DL High-Risk: 240 MG/DL and over 24 HDL INTERPRETATION: Undesirable: High Risk: Less than 40 MG/DL Desirable: Low Risk: Greater than 60 MG/DL 25 LDL INTERPRETATION: Low Risk Optimal Level: LDL Less than 100 MG/DL Near or Above Optimal: LDL 100-129 MG/DL Borderline High Risk: LDL 130-159 MG/DL High Risk: LDL 160-189 MG/DL Very High Risk: LDL Greater than 189 MG/DL Procedures Date CPT Code Description Status 10/01/2016 43401 Admin & Interp Of Health Risk Assessment w/ Patient Completed 03/06/2015 Mammogram Completed 03/02/2014 Mammogram Completed 02/28/2013 Mammogram Completed 12/08/2012 65073 Rad Exam; Hand Limited Completed 12/08/2012 21497 Rad Exam; Hand Limited Completed 11/17/2012 53770 Rad Exam; Hand Limited Completed 10/27/2012 23956 Rad Exam; Hand Comp Completed 10/20/2012 42347 Closed TX Metacarpal FX Single W/O Manipulation, Ea Completed Bone 08/24/2012 86191 EKG Tracing & Interpretation Completed 01/07/2012 22339 EKG Tracing & Interpretation Completed 06/25/2011 Colonoscopy Completed 06/01/2011 Mammogram Completed 05/13/2011 08104 EKG Tracing & Interpretation Completed 06/11/2010 Bone Mineral Density Test Completed 06/04/2010 06467 EKG Tracing & Interpretation Completed 02/11/2010 Mammogram Completed 01/23/2008 Mammogram Completed 01/21/2007 Mammogram Completed 09/25/2005 Mammogram Completed 11/29/2003 Colonoscopy Completed Encounters Type Date Location Provider CPT E/M Dx Office Visit 01/18/2017 [facility] Barbara Wan, 79432 M54.16 11:40a - Justin Burdick Office Visit 10/01/2016 [facility] Barbara Wan 42372 Z00.00 1:20p - Justin Burdick M54.16 Z12.31 K50.00 Z23 Office Visit 08/21/2016 9:00a [facility] Internal Barbara Wan 79305 M25.552 Luke Anderson M.D. Office Visit 02/13/2016 8:00a [facility] Internal Barbara Wan 09308 B37.0 Luke Anderson M.D. Office Visit 09/30/2015 1:20p [facility] Barbara Wan 10415 Z00.00 Luke Anderson M.D. R51 Z12.4 Z23 Office Visit 05/31/2015 9:20a [facility] Barbara Wan, 39388 H60.10 - Justin Burdick B35.1 H60.11 Office Visit 09/24/2014 1:40p [facility] Barbara Wan 08565 V70.0 - Justin Burdick V76.12 V73.89 Office Visit 02/05/2014 11:40a [facility] Barbara Wan, 66611 782.2 - Justin Burdick Office Visit 09/18/2013 1:40p [facility] Barbara Wan 98045 V70.0 - Justin Burdick V76.10 555.9 782.2 V73.89 Office Visit 08/03/2013 4:20p [facility] Barbara Wan, 63079 788.42 - Justin Burdick 780.59 Office Visit 05/30/2013 2:00p [facility] Rula Moreno M.D., 19365 924.10 - Lewis FACP Office Visit 04/11/2013 11:20a [facility] Rula Moreno M.D., 96092 727.03 - Lewis FACP Office Visit 01/19/2013 1:00p [facility] Internal Medicine Rula Moreno M.D., 58930 272.0 - Lewis FACP V76.10 Office Visit 10/19/2012 11:20a [facility] Internal Medicine Rula Moreno M.D., 42650 959.4 Lewis FACP Office Visit 08/24/2012 1:00p [facility] Medicine Rula Moreno M.D., 84387 V70.0 Lewis FACP V72.31 V76.10 272.0 555.9 477.9 Office Visit 01/22/2012 1:00p [facility] Internal Medicine Barbara Wan, 11522 724.3 - Justin Burdick Office Visit 01/07/2012 9:20a [facility] Internal Medicine Rula Moreno M.D., 88870 V72.84 - Lewis FACP 626.2 555.9 Office Visit 10/28/2011 2:00p [facility] Internal [facility] Rula Moreno M.D., 61128 626.2 Lewis FACP Office Visit 07/21/2011 12:00p [facility] Internal [facility] Rula Moreno M.D., 95183 682.3 Lewis FACP Office Visit 07/17/2011 1:40p [facility] Internal [facility] Rula Moreno M.D., 49878 683 Lewis FACP v04.89 Office Visit 05/13/2011 2:40p [facility] Internal [facility] Rula Moreno M.D., 78586 V70.0 Lewis FACP 272.0 555.9 V76.10 733.90 787.02 780.52 723.1 709.8 Office Visit 06/04/2010 11:15a DO Not Use [employer] Rula Moreno, 26685 555.9 Heavenly, FACP 627.9 627.1 V72.84 368.9 272.0 Office Visit 02/19/2010 11:00a DO Not Use [employer] Manjula Miller, 26719 623.7 N.P. 627.1 Office Visit 12/20/2009 11:30a DO Not Use [employer] Manjula Miller, 62147 461.9 N.P. 388.70 692.9 Office Visit 12/10/2009 1:45p DO Not Use [employer] Manjula Miller, 16911 461.9 N.P. 466.0 626.2 Office Visit 11/28/2009 1:15p DO Not Use [employer] Rula Moreno, 82156 692.9 M.D., FACP 728.85 V74.5 Office Visit 03/04/2009 2:00p DO Not Use Manjula Miller, 10969 465.9 [employer] N.P. Office Visit 11/28/2008 11:30a DO Not Use Rula Moreno M.D., 97101 726.12 [employer] FACP 627.2 Office Visit 10/11/2008 11:00a DO Not Use [employer] Rula Moreno 16561 627.2 M.D., FACP 555.9 272.4 Office Visit 07/25/2008 2:15p DO Not Use [employer] Rula Moreno 45367 627.2 M.D., FACP Office Visit 09/22/2007 11:30a DO Not Use [employer] Rula Moreno, 90156 V72.31 M.D., FACP 555.9 272.0 610.0 Office Visit 11/23/2006 1:00p DO Not Use [employer] Rula Moreno 41844 555.9 M.D., FACP 311 V04.81 Office Visit 10/25/2006 11:00a DO Not Use Rula Moreno M.D., 60990 311 [employer] FACP Office Visit 06/18/2006 2:45p DO Not Use Rula Moreno M.D., 51692 845.00 [employer] FACP Office Visit 05/06/2006 11:15a DO Not Use Manjula Miller, 73667 461.9 [employer] N.P. 466.0 616.10 Office Visit 03/16/2006 11:00a DO Not Use [employer] Rula Moreno, 34419 309.0 M.D., FACP Office Visit 09/30/2005 1:45p DO Not Use [employer] Rula Moreno, 55335 M.D., FACP Office Visit 08/14/2005 2:00p DO Not Use [employer] Rula Moreno, 38470 v72.31 M.D., [facility] Plan of Care Future Appointment(s):10/06/2018 4:20 pm - Barbara Wan M.D. at [facility] Internal Medicine - Ihpegtbnl66/28/2018 - Barbara Wan M.D.Z00.00 Encntr for general adult medical exam w/o abnormal findingsComments:~B_VACCINES:~b_1. Flu shot every year in the fall.2. Tetanus: last one done in 2015. Booster every 10 years3. Shingles vaccine: Zostavax: 50% effective, you had this in 2011Shingrix: This is a new shingles vaccine - Shingrix - 90% effective and available at pharmacies. Series of 2 shots, given 2-6 months apart. Most people get a flu-like reaction. Cost is about $400 - call your insurance about coverage. 4. Pneumonia vaccination recommended due to taking immunosuppressant medication. Prevnar done [id number], Pneumovax due this year, with Pneumovax booster at age 65~B_SCREENING:~b_Colonoscopy: last onedone in 2011, follow up recommended at 10 yearsMammogram: done in February 2015Pap smear: done in 2015, pap was normal and HPV was negative. Current guidelines for low risk women recommend repeat at 5 years.Bone density test (DEXA): done in 2010, was normal. Recheck between age 60-65Skin screening: Dr. Rosario's officeFollow up:1 yearK50.00 Crohn's disease of small intestine without complicationsComments: Call [phone]. Simon WesleyN63.21 Unspecified lump in the left breast, upper outer quadrant
== END 2017-10-29 17:20 | disposition home or self-care (01) ==
LOC: UCEAST 16:54
DX: R07.9 Chest pain, unspecified (principal); Z82.49 Family history of ischemic heart disease and other diseases of the circulatory system; Z87.891 Personal history of nicotine dependence
CPT/HCPCS: 93005; 99212; G0463

== ENCOUNTER 2017-10-29 17:44 | Emergency (ER) | payer OTHER ==
[2017-10-29 20:01] LABS: ABS Basophils 0.1 10^3/ul (0-0.2); ABS Eosinophils 0.1 10^3/ul (0-0.6); ABS Lymphocytes 2.5 10^3/ul (1.0-4.8); ABS Monocytes 0.6 10^3/ul (0-0.8); ABS Nucleated RBC 0 10^3/ul; Eosinophil % 2.4 % (0-6); Hematocrit 36 % (35-47); Hemoglobin 12.6 g/dl (12.0-16.0); Lymphocyte % 39.7 % (25-47); Mean Corpuscular HGB Conc 35 g/dl (31-36); Mean Corpuscular Hemoglobin 30 pg (27-31); Mean Corpuscular Volume 87 fL (80-97); Mean Platelet Volume 6.7 um3 (7.4-10.4); Nucleated Red Blood Cells % 0.1; Platelet Count 352 10^3/ul (150-450); Red Blood Count 4.15 10^6/ul (4.00-5.40); Red Cell Distribution Width 13 % (10.5-15); White Blood Count 6.3 10^3/ul (3.5-10.8)
[2017-10-29 20:12] LABS: EGFR Non-African American 52.1 (>60)
--- NOTE | 2017-10-29 23:21 | ED ---
HPI Chest Pain - HPI Summary HPI Summary: This is a generally healthy 56-year-old woman who presents to the ED after being evaluated at [facility], where she had gone because of the abrupt onset of rash or leg pain in the mid chest at about 4:30 while she was sitting in her office. That painful episode lasted about 15 minutes and was not associated with any other symptoms such as shortness of breath, diaphoresis, or significant nausea or vomiting. After it subsided she felt generally well, but about 5 minutes later it recurred, this time lasting just a few minutes. She went to [facility] care where she had a borderline EKG and was referred here for further evaluation. She has no prior history of coronary disease, and no significant risk factors. She has not any recent illnesses. The pain was moderate in severity. - History of Current Complaint Chief Complaint: EDChestPainROMI Time Seen by Provider: 10/29/17 19:26 Pain Intensity: 2 - Allergy/Home Medications Allergies/Adverse Reactions: Allergies Allergy/AdvReac Type Severity Reaction Status Date / Time kiwi Allergy Anaphylatic Uncoded 04/19/17 16:20 Shock PMH/Surg Hx/FS Hx/Imm Hx Endocrine/Hematology History: Denies: Hx Diabetes Cardiovascular History: Denies: Hx Hypertension, Hx Pacemaker/ICD Respiratory History: Denies: Hx Chronic Obstructive Pulmonary Disease (COPD) GI History: Reports: Other GI Disorders - CROHNS DISEASE History: Denies: Hx Renal Disease Sensory History: Denies: Hx Hearing Aid Neurological History: Reports: Other Neuro Impairments/Disorders - PAIN CLINIC PT Psychiatric History: Reports: Hx Anxiety Denies: Hx Panic Disorder - Cancer History Hx Chemotherapy: No Hx Radiation Therapy: No - Surgical History Surgery Procedure, Year, and Place: INTESTINAL RESECTION. BREAST CYST BIOPSY. APPENDECTOMY Infectious Disease History: No Infectious Disease History: Reports: Hx Shingles Denies: Hx Hepatitis, Traveled Outside the [place] in Last 30 Days - Family History Known Family History: Positive: Cardiac Disease - father CAD (quadruple bypass) - Social History Alcohol Use: Rare Substance Use Type: Reports: None Smoking Status (MU): Former Smoker Have You Smoked in the Last Year: No Review of Systems Constitutional: Negative Eyes: Negative Positive: Chest Pain Negative: Shortness Of Breath, Cough Positive: Nausea - mild transient. Negative: Abdominal Pain, Vomiting All Other Systems Reviewed And Are Negative: Yes Physical Exam - Summary Physical Exam Summary: General: This is a well-developed, well- nourished white female lying on the stretcher in no apparent distress. The patient does not appear ill or toxic. HEENT:Extraocular movements are intact. Conjunctiva are normal without pallor. Pharynx is clear without exudate or swelling. Dentition is unremarkable. There is no sign of head trauma. Neck: Supple, no adenopathy noted. Lungs: Lungs are clear to auscultation. There are no signs of respiratory distress. Coronary: Peripheral perfusion is good. Heart sounds are regular, a normal S1 and S2 were auscultated. There is no gallop rhythm, nor any pathological sounded murmurs. Abdomen: The abdomen appears normal and is nondistended. Normoactive bowel sounds are present. On palpation, there is no significant tenderness, nor any guarding or rebound. There is no hepatosplenomegaly, nor any masses. Genitourinary: Deferred Back: Good range of motion is observed. There are no surface abnormalities nor any scoliosis. Extremities: Good range of motion was observed in all 4 extremities. There is no sign of any trauma to the extremities. Neurologic: The patient is awake and alert, speech is fluent in conversation is appropriate. There are no focal motor abnormalities. Cranial nerves are grossly intact. Deep tendon reflexes are 2+ and symmetric. There is no ataxia observed. Psychiatric. The patients affect is felt to be normal and appropriate. There is no sign of any hallucinations or delusions, or any other signs of psychosis. Vital Signs On Initial Exam: Initial Vitals Temp Pulse Resp BP Pulse Ox 36.3 C 75 16 132/83 97 10/29/17 17:53 10/29/17 17:53 10/29/17 17:53 10/29/17 17:53 10/29/17 17:53 Diagnostics - Vital Signs Vital Signs Temp Pulse Resp BP Pulse Ox 10/29/17 22:26 77 20 145/86 94 10/29/17 22:00 76 15 97 10/29/17 21:57 79 19 133/84 99 10/29/17 21:26 75 18 144/90 96 10/29/17 21:00 73 15 95 10/29/17 20:56 76 17 138/85 97 10/29/17 20:26 72 18 142/90 95 10/29/17 20:00 76 22 93 10/29/17 19:56 76 15 144/86 96 10/29/17 19:26 74 15 147/93 96 10/29/17 17:53 36.3 C 75 16 132/83 97 - Laboratory Lab Results: Lab Results 10/29/17 10/29/17 10/29/17 Range/Units 19:44 19:44 21:14 WBC 6.3 (3.5-10.8) 10^3/ul RBC 4.15 (4.00-5.40) 10^6/ul Hgb 12.6 (12.0-16.0) g/dl Hct 36 (35-47) % MCV 87 (80-97) fL MCH 30 (27-31) pg MCHC 35 (31-36) g/dl RDW 13 (10.5-15) % Plt Count 352 (150-450) 10^3/ul MPV 6.7 L (7.4-10.4) um3 Neut % (Auto) 47.6 (38-83) % Lymph % (Auto) 39.7 (25-47) % Bullitt % (Auto) 9.3 H (0-7) % Eos % (Auto) 2.4 (0-6) % Baso % (Auto) 1.0 (0-2) % Absolute Neuts (auto) 3.0 (1.5-7.7) 10^3/ul Absolute Lymphs (auto) 2.5 (1.0-4.8) 10^3/ul Absolute Monos (auto) 0.6 (0-0.8) 10^3/ul Absolute Eos (auto) 0.1 (0-0.6) 10^3/ul Absolute Basos (auto) 0.1 (0-0.2) 10^3/ul Absolute Nucleated RBC 0 10^3/ul Nucleated RBC % 0.1 Sodium 139 (135-145) mmol/L Potassium 4.0 (3.5-5.0) mmol/L Chloride 103 (101-111) mmol/L Carbon Dioxide 28 (22-32) mmol/L Anion Gap 8 (2-11) mmol/L BUN 31 H (6-24) mg/dL Creatinine 1.08 H (0.51-0.95) mg/dL Est GFR ( Amer) 63.1 (>60) Est GFR (Non-Af Amer) 52.1 (>60) BUN/Creatinine Ratio 28.7 H (8-20) Glucose 100 (70-100) mg/dL Calcium 9.3 (8.6-10.3) mg/dL Total Bilirubin 0.30 (0.2-1.0) mg/dL AST 15 (13-39) U/L ALT 16 (7-52) U/L Alkaline Phosphatase 58 (34-104) U/L Troponin I 0.00 0.00 (<0.04) ng/mL Total Protein 6.9 (6.4-8.9) g/dL Albumin 4.1 (3.2-5.2) g/dL Globulin 2.8 (2-4) g/dL Albumin/Globulin Ratio 1.5 (1-3) Result Diagrams: 10/29/17 19:44 10/29/17 19:44 Lab Statement: Any lab studies that have been ordered have been reviewed, and results considered in the medical decision making process. - EKG No standard instances Cardiac Rate: NL EKG Rhythm: Sinus Rhythm ST Segment: Normal Ectopy: None Chest Pain Course/Dx - Diagnoses Provider Diagnoses: Chest pain Discharge - Sign-Out/Discharge Documenting (check all that apply): Patient Departure - Discharge Plan Condition: Good Disposition: HOME Patient Education Materials: Chest Pain (ED) Referrals: Barbara Wan MD [Primary Care Provider] - 3 Days - Billing Disposition and Condition Condition: GOOD Disposition: Home - Attestation Statements Document Initiated by Scribe: No
[2017-10-29 23:30] VITALS: BP 126/74
--- NOTE | 2017-10-30 14:20 | RAD ---
INDICATION: Chest pain and tightness COMPARISON: Most recent comparison chest x-rays dated July 16, 2016 TECHNIQUE: PA and lateral views of the chest were obtained. FINDINGS: The heart and mediastinum are normal in size and contour. The lungs are grossly clear. There is no evidence of large pleural effusion. Visualized bones are normal for the patient's age. There is no radiographic evidence of free air beneath the diaphragm IMPRESSION: No radiographic evidence of acute cardiopulmonary disease. R0
== END 2017-10-29 23:29 | disposition home or self-care (01) ==
LOC: ED 17:44
DX: R07.9 Chest pain, unspecified (principal); R11.0 Nausea; Z87.891 Personal history of nicotine dependence
CPT/HCPCS: 36415; 71046; 80053; 84484; 85025; 93005; 99283